=== PATIENT | female | born 1965 | race Caucasian/White ===

== ENCOUNTER 2019-02-01 19:45 | Emergency (ER) | payer SELFPAY ==
--- NOTE | 2019-02-01 20:09 | EDM.PDOC ---
ED HPI GENERAL MEDICAL PROBLEM - General Chief Complaint: Diabetic Complaint Stated Complaint: [facility] Time Seen by Provider: 02/01/19 19:55 Source of Information: Reports: Patient History Limitations: Reports: No Limitations - History of Present Illness INITIAL COMMENTS - FREE TEXT/NARRATIVE: 53-year-old female who is insulin-dependent diabetic presents to the ED with a hypoglycemic event. Reports that she is using an insulin pump for control and is working very well for her for the last year. She has had very good control of her blood sugars. Today it about 1500 hrs. while at work she felt a little bit weak and tests her blood sugar and found it to be slightly low at 55. She ate some M&Ms and seemed to get better. At 1700 hrs. she went to the [employer] store with coworkers to lease picker clothing that they might need for oncoming cold weather. Apparently she had a significant hypoglycemic event and went down at the [email or web address] are . When paramedics arrived your blood sugar was only 36. They started an IV in her right forearm and apparently did give her both glucagon 1 mg and an amp of D50. Blood sugar done shortly after arrival here was only 67. Nurses are giving her food including peanut butter on toast. It's mostly is that her blood sugar did not respond to a much higher level after amp of D50. When I look at the IV that is in her right medial forearm it appears that is interstitial and it is likely that she did not receive any significant medication effect. Blood sugars will be checked every 20-30 minutes until we get it back up to normal. Patient states she has no pain or injuries. Unclear whether she suffered any seizure activity when she went to the floor. No co- workers are with her at this time. Patient reports she's never had any problems with her insulin pump in the past. She does recharge the battery and seems to be working well. Onset: Today Onset Date: 02/01/19 Onset Time: 19:15 Duration: Minutes: Location: Reports: Generalized (Generalized weakness. No apparent injuries.) Quality: Reports: Other (She did have some initial pain in her groins after receiving the glucagon but this is better now. Only pain now is in her right volar forearm where IV has infiltrated. There is firmness up to her elbow on the volar aspect of her forearm on the right side.) Severity: Moderate Improves with: Reports: Other (Seems to gone better with) Worsens with: Reports: None Context: Reports: Other (Suffered a hypoglycemic reaction while at [facility] today. She is an insulin-dependent better controlled with insulin pump.). Denies: Activity, Exercise, Lifting, Sick Contact, Trauma Associated Symptoms: Reports: Confusion, cough w sputum, Headaches (Mild headache), Weakness. Denies: Chest Pain, Cough (Patient has no recollection of what is happening to her.), Diaphoresis, Fever/Chills, Loss of Appetite, Nausea/ Vomiting, Rash, Seizure, Shortness of Breath, Syncope Treatments PATIENT ACCOUNTS COORDINATOR: Reports: Other (see below) (Apparently received an epidural 50 and 1 mg of glucagon IV by paramedics but appears that this infiltrated into her right forearm and she is unlikely to have gotten much medication.) Bilateral Groin Pain Score (Numeric/FACES): 8 - Related Data Allergies Allergy/AdvReac Type Severity Reaction Status Date / Time No Known Allergies Allergy Verified 02/01/19 19:54 Home Meds: Home Meds . [Unable to Verify Home Med List] 02/01/19 [History] Past Medical History Genitourinary History: Reports: Chronic Renal Insuffiency Endocrine/Metabolic History: Reports: Diabetes, Type I Insulin Pump Model and Cutter Down: Ameni Type of Insulin Used in Pump: Novolog When was Your Last Insulin Site/Set Changed: 01/31/19 Who Manages Your Pump: Patient (Self) Do You Give Correction Boluses or Sliding Scale: Yes Patient/Family Able to Supply Written Copy of Sliding Scale: Yes Social & Family History - Tobacco Use Smoking Status *Q: Current Every Day Smoker Years of Tobacco use: 30 Packs/Tins Daily: 1 - Recreational Drug Use Recreational Drug Use: No - Living Situation & Occupation Occupation: Employed ED ROS GENERAL - Review of Systems Review Of Systems: See Below Constitutional: Reports: Malaise, Weakness, Fatigue, Other (Patient states she did have breakfast and dinner today.). Denies: Fever, Chills HEENT: Reports: Glasses Respiratory: Reports: No Symptoms Cardiovascular: Reports: No Symptoms, Blood Pressure Problem. Denies: Chest Pain, Claudication, Dyspnea on Exertion, Edema, Lightheadedness, Orthopnea Endocrine: Reports: Fatigue, Low Glucose GI/Abdominal: Reports: Nausea (Minimal nausea.) : Reports: Frequency Musculoskeletal: Reports: No Symptoms Skin: Reports: No Symptoms Neurological: Reports: No Symptoms Psychiatric: Reports: No Symptoms Hematologic/Lymphatic: Reports: No Symptoms Immunologic: Reports: No Symptoms ED EXAM GENERAL NO PERIP PULSE - Physical Exam Exam: See Below Exam Limited By: Uncooperative General Appearance: Alert, WD/WN, Anxious, Other (Moderately anxious. Vital signs show temperature 36.6 pulse 92 and sinus respiratory 16 BP is elevated 149 /113. Pulse ox 98% on room air.) Eye Exam: Bilateral Eye: Normal Inspection Throat/Mouth: Normal Inspection, Normal Lips, Normal Teeth, Normal Oropharynx, Other Head: Atraumatic (No signs that she has bitten her tongue or had a seizure.), Normocephalic, Other Neck: Normal Inspection, Supple (No outward signs of head or facial trauma.), Non-Tender, Full Range of Motion. No: Lymphadenopathy (L), Lymphadenopathy (R) Respiratory/Chest: No Respiratory Distress, Lungs Clear, Normal Breath Sounds, No Accessory Muscle Use Cardiovascular: Normal Peripheral Pulses, Regular Rate, Rhythm, No Edema, No Murmur, No Rub GI/Abdominal: Normal Bowel Sounds, Soft, Non-Tender, No Organomegaly, No Abnormal Bruit Back Exam: Normal Inspection, Full Range of Motion. No: CVA Tenderness (L), CVA Tenderness (R) Extremities: No Pedal Edema, Other (IV has infiltrated volar aspect of right forearm with firmness and thickening of the tissues from the wrist to the elbow volarly. This IV will be removed. Is a saline lock at present. It's where she had medication instilled and I suspect all the medication was went interstitial) Neurological: Alert, Oriented, CN II-XII Intact, Normal Cognition, No Motor/ Sensory Deficits Psychiatric: Anxious Skin Exam: Warm, Dry, Intact, Normal Color, No Rash Course - Vital Signs Last Recorded V/S: Last Vital Signs Temp 36.6 C 02/01/19 19:52 Pulse 81 02/01/19 21:44 Resp 18 02/01/19 21:44 BP 173/66 H 02/01/19 21:44 Pulse Ox 100 02/01/19 21:44 - Orders/Labs/Meds Orders: Active Orders 24 hr Category Date Time Status Blood Glucose Check, Bedside [RC] ASDIRECTED Care 02/01/19 20:30 Active Labs: Laboratory Tests 02/01/19 02/01/19 02/01/19 Range/Units 20:16 20:16 20:16 WBC 6.61 (3.98-10.04) K/mm3 RBC 3.31 L (3.98-5.22) M/mm3 Hgb 10.2 L (11.2-15.7) gm/dl Hct 30.7 L (34.1-44.9) % MCV 92.7 (79.4-94.8) fl MCH 30.8 (25.6-32.2) pg MCHC 33.2 (32.2-35.5) g/dl RDW Std Deviation 45.4 (36.4-46.3) fL Plt Count 304 (182-369) K/mm3 MPV 11.8 (9.4-12.3) fl Neut % (Auto) 64.4 (34.0-71.1) % Lymph % (Auto) 25.6 (19.3-51.7) % Briscoe % (Auto) 8.3 (4.7-12.5) % Eos % (Auto) 1.4 (0.7-5.8) Baso % (Auto) 0.3 (0.1-1.2) % Neut # (Auto) 4.26 (1.56-6.13) K/mm3 Lymph # (Auto) 1.69 (1.18-3.74) K/mm3 Briscoe # (Auto) 0.55 H (0.24-0.36) K/mm3 Eos # (Auto) 0.09 (0.04-0.36) K/mm3 Baso # (Auto) 0.02 (0.01-0.08) K/mm3 Sodium 138 (136-145) mEq/L Potassium 3.6 (3.5-5.1) mEq/L Chloride 103 (98-107) mEq/L Carbon Dioxide 28 (21-32) mEq/L Anion Gap 10.6 (5-15) BUN 21 H (7-18) mg/dL Creatinine 1.5 H (0.55-1.02) mg/dL Est Cr Clr Drug Dosing 31.51 mL/min Estimated GFR (MDRD) 36 (>60) mL/min BUN/Creatinine Ratio 14.0 (14-18) Glucose 391 H (74-106) mg/dL POC Glucose (70-105) mg/dL Hemoglobin A1c 8.30 H (4.50-6.20) % Calcium 9.6 (8.5-10.1) mg/dL Total Bilirubin 0.2 (0.2-1.0) mg/dL AST 25 (15-37) U/L ALT 25 (14-59) U/L Alkaline Phosphatase 82 (46-116) U/L Total Protein 7.8 (6.4-8.2) g/dl Albumin 4.1 (3.4-5.0) g/dl Globulin 3.7 gm/dL Albumin/Globulin Ratio 1.1 (1-2) 02/01/19 02/01/19 Range/Units 20:37 21:15 WBC (3.98-10.04) K/mm3 RBC (3.98-5.22) M/mm3 Hgb (11.2-15.7) gm/dl Hct (34.1-44.9) % MCV (79.4-94.8) fl MCH (25.6-32.2) pg MCHC (32.2-35.5) g/dl RDW Std Deviation (36.4-46.3) fL Plt Count (182-369) K/mm3 MPV (9.4-12.3) fl Neut % (Auto) (34.0-71.1) % Lymph % (Auto) (19.3-51.7) % Briscoe % (Auto) (4.7-12.5) % Eos % (Auto) (0.7-5.8) Baso % (Auto) (0.1-1.2) % Neut # (Auto) (1.56-6.13) K/mm3 Lymph # (Auto) (1.18-3.74) K/mm3 Briscoe # (Auto) (0.24-0.36) K/mm3 Eos # (Auto) (0.04-0.36) K/mm3 Baso # (Auto) (0.01-0.08) K/mm3 Sodium (136-145) mEq/L Potassium (3.5-5.1) mEq/L Chloride (98-107) mEq/L Carbon Dioxide (21-32) mEq/L Anion Gap (5-15) BUN (7-18) mg/dL Creatinine (0.55-1.02) mg/dL Est Cr Clr Drug Dosing mL/min Estimated GFR (MDRD) (>60) mL/min BUN/Creatinine Ratio (14-18) Glucose (74-106) mg/dL POC Glucose 218 H 267 H (70-105) mg/dL Hemoglobin A1c (4.50-6.20) % Calcium (8.5-10.1) mg/dL Total Bilirubin (0.2-1.0) mg/dL AST (15-37) U/L ALT (14-59) U/L Alkaline Phosphatase (46-116) U/L Total Protein (6.4-8.2) g/dl Albumin (3.4-5.0) g/dl Globulin gm/dL Albumin/Globulin Ratio (1-2) - Radiology Interpretation Free Text/Narrative:: 53-year-old female who is an insulin-dependent diabetic controlled with insulin pump for the last year expressed a hypoglycemic event while at [employer] out this evening. She has no recollection of what has happened to her. Her last blood sugar check at 1500 hrs. today was 55 slightly low and she did have some M &M's. She went shopping with her coworkers at [phone] hours after they got off work at [employer]. Been in the store for a lengthy period of time. She does remember starting to feel weak or dizzy or lightheaded. Fairly she went down to the floor and collapsed at the cashier payments received area. She was admitted to the floor by coworkers and did not fall hard. Paramedics were summoned and identified a blood sugar of 36. A saline lock was started in her right volar forearm and she was given an amp of D50 and glucagon 1 mg IV. It appears that this medication went interstitial and she never really got much benefit from this. No IV has been started on the left side. At present the nurses are feeding her. Current blood sugar is 67. It should've been well over 200 after nap of D50. Blood sugars were checked every one half hour. I have ordered a CBC a CMP and a glycosylated protein. - Re-Assessments/Exams Free Text/Narrative Re-Assessment/Exam: 02/01/19 20:40 curb blood sugars reportedly 267. It will be repeated in one half hour. 02/01/19 21:27 last blood sugar was 217. Patient feels back to normal. She will therefore be discharged to home. She's been diabetic for over 20 years and is well versed in how to check her sugars and monitor for hypoglycemic events. Given a note to excuse her from work tomorrow since she has get up at 3:30 in the morning to go to work.Sodium is 138 with a potassium of 3.6. Chloride 103 with a bicarbonate 28. And a gap is 10.6. B1 is 21 with a creatinine of 1.5. GFR is slightly low at 36 a stage III chronic kidney disease. Glucose in the lab was 391. Bedside glucose was 267. Hemoglobin A1c is 8.30 indicating control is not the best but certainly not accounting for why she expressed a low sugar today. Calcium is 9.6. Liver function is normal. Departure - Departure Time of Disposition: 21:27 Disposition: Home, Self-Care Condition: Fair Clinical Impression: Hypoglycemia associated with type 2 diabetes mellitus - Discharge Information *PRESCRIPTION DRUG MONITORING PROGRAM REVIEWED*: Not Applicable *COPY OF PRESCRIPTION DRUG MONITORING REPORT IN PATIENT JESSICA: Not Applicable Instructions: Insulin Treatment for Diabetes Mellitus, Preventing Hypoglycemia Referrals: PCP,Unknown [Primary Care Provider] - Forms: ED Department Discharge, ED Return to Work/School Form Additional Instructions: Evaluation the emergent today in regards to the development of a hypoglycemic event while at [facility]. Apparently went down to the floor but were caught by friends and prevent it from harming herself when he went to the floor. When the paramedics arrived your blood sugar was found to be 36. You're given glucagon 1 mg IV and an amp of dextrose 50% although I think most of this medication went interstitial into the soft tissues of your right forearm. Surgery in the ED was 67 but after eating and absorption of some of the dextrose and glucagon your sugars went up to as high as 267 which would be appropriate after receiving a dose of dextrose. Last blood sugar was 217. It appears that perhaps he did not have enough carb intake today to compensate for insulin use. Keep an eye no insulin pump and check sugars quite frequently for the next day or so to make sure that there is no further risk of severe hypoglycemic reaction. Suggest off work tomorrow. - My Orders Last 24 Hours: My Active Orders 02/01/19 20:30 Blood Glucose Check, Bedside [] ASDIRECTED - Assessment/Plan Last 24 Hours: My Active Orders 02/01/19 20:30 Blood Glucose Check, Bedside [RC] ASDIRECTED
[2019-02-01 20:57] LABS: HEMOGLOBIN A1C 8.3 % (4.50-6.20)
== END 2019-02-01 21:44 | disposition home or self-care (01) ==
LOC: JD.ED 19:45
DX: E11.649 Type 2 diabetes mellitus with hypoglycemia without coma (principal); F17.210 Nicotine dependence, cigarettes, uncomplicated; Z79.4 Long term (current) use of insulin
CPT/HCPCS: 36415; 80053; 82962; 83036; 85025; 99285